=== PATIENT | female | born 2000 | race African-American/Black ===

== ENCOUNTER 2025-05-30 08:13 | Emergency (ER) | payer MEDICAID ==
[~2025-05-30] VITALS: Ht 167.6 cm; Wt 72.0 kg
[2025-05-30 08:59] VITALS: PULSE 82; RESP 24; O2SAT 98
[2025-05-30] MEDS: IPRATROPIUM BROMIDE (0.02%) 0.5MG/2.5ML NEB HHN ONE (08:59)
[2025-05-30] MEDS: ALBUTEROL (0.083%) 2.5MG/3ML NEB HHN ONE (09:00)
[2025-05-30] MEDS: PREDNISONE 20MG TABLET PO ONE (09:04)
[2025-05-30] MEDS ORDERED: IPRA3AMP9 NEB (10:26)
[2025-05-30] MEDS ORDERED: P50 MT (10:26)
[2025-05-30] MEDS ORDERED: ALBU18HF2 IH (10:26)
[2025-05-30 10:44] VITALS: BP 126/82; PULSE 98; RESP 19; TEMP 36.9; O2SAT 97
== END 2025-05-30 10:43 | disposition home or self-care (01) ==
LOC: ER 08:13
DX: J45.901 Unspecified asthma with (acute) exacerbation (principal); Z79.899 Other long term (current) drug therapy
CPT/HCPCS: 71045; 94644; 99291; J7512; Z7610